=== PATIENT | female | born 1945 | race Caucasian/White ===

== ENCOUNTER → 2023-10-29 10:09 | Outpatient (REF) | payer MEDICARE, MEDICAID, SELFPAY | LOC: HWWDC 10:09 | PROVIDERS: ATTENDING PHYSICIAN Internal Medicine | DX: Z12.31 Encounter for screening mammogram for malignant neoplasm of breast (principal) | CPT/HCPCS: 77063; 77067 ==

== ENCOUNTER → 2024-11-02 10:39 | Outpatient (REF) | payer MEDICARE, MEDICAID, SELFPAY | LOC: HWWDC 10:39 | PROVIDERS: ATTENDING PHYSICIAN Internal Medicine | DX: Z12.31 Encounter for screening mammogram for malignant neoplasm of breast (principal) | CPT/HCPCS: 77063; 77067 ==

== ENCOUNTER → 2025-03-05 11:22 | Outpatient (REF) | payer MEDICARE, MEDICAID, SELFPAY | LOC: RAD 11:22 | PROVIDERS: ATTENDING PHYSICIAN Internal Medicine | DX: M85.80 Other specified disorders of bone density and structure, unspecified site (principal); M85.862 Other specified disorders of bone density and structure, left lower leg | CPT/HCPCS: 77080 ==

== ENCOUNTER → 2025-03-16 08:46 | Outpatient (REF) | payer MEDICARE, SELFPAY | LOC: MRI 3T 08:46 | PROVIDERS: ATTENDING PHYSICIAN Psychiatry & Neurology Neurology | DX: R41.3 Other amnesia (principal) | CPT/HCPCS: 70551 ==